=== PATIENT | male | born 1995 | race American Indian/Alaskan Native ===

== ENCOUNTER 2022-08-07 10:14 | Emergency (ER) | payer OTHER ==
[2022-08-07 10:47] VITALS: BP 113/57; PULSE 72; RESP 20; TEMP 97.8; BMI 20.2
[2022-08-07] MEDS ORDERED: LIDOCAINE 5% TOPICAL PATCH TP ONE (12:23)
[2022-08-07] MEDS ORDERED: METHOCARBAMOL 500 MG TABLET PO ONE (12:23)
[2022-08-07] MEDS ORDERED: ACETAMINOPHEN 325 MG TABLET (FP) PO ONE (12:24)
[2022-08-07] MEDS ORDERED: IBUPROFEN 600 MG TABLET (FP) PO ONE ×2 (12:24→12:39)
[2022-08-07] MEDS ORDERED: ACETAMINOPHEN 325 MG TABLET (FP) ONE (12:39)
[2022-08-07] MEDS ORDERED: METHOCARBAMOL 500 MG TABLET ONE (12:39)
[2022-08-07] MEDS ORDERED: LIDOCAINE 5% TOPICAL PATCH ONE (12:39)
[2022-08-07] MEDS ORDERED: LIDOCAINE PATCH REMOVAL MC ONE (22:00)
== END 2022-08-07 13:44 | disposition home or self-care (01) ==
LOC: JERFT 10:14 → JER 10:14 → JERFT 13:44
DX: M62.830 Muscle spasm of back (principal)
CPT/HCPCS: 99283-25